=== PATIENT | female | born 1990 | race Caucasian/White ===

== ENCOUNTER 2023-10-07 09:28 | Outpatient (CLI) | payer OTHER, SELFPAY ==
--- NOTE | ~2023-10-07 | MMUS_ITS ---
EXAMINATION: MM diagnostic kaylynn BI w carito, US breast BI complete HISTORY: Patient feels a lump in left breast at 8:00. Referring physician reportedly feels a lump in the right breast in the upper outer quadrant. TECHNIQUE: Bilateral full field MLO, MLO and CC spot left MLO, MLO and CC 3-D tomosynthesis images we re performed and synthetic 2-D images were generated. CAD analysis was submitted and interpreted. Hig h resolution complete bilateral breast ultrasound examination including all 4 quadrants and subareola r area in each breast was performed. COMPARISON: None BREAST PARENCHYMAL COMPOSITION: The breasts are extremely dense, which lowers the sensitivity of mamm ography. FINDINGS: MAMMOGRAPHIC FINDINGS: An approximately 8 x 11 mm circumscribed benign-appearing lesion with several benign-appearing calcif ications is noted anteriorly in the upper inner quadrant of the left breast. The extremely dense fibroglandular stroma vascular masses in either breast. No malignant calcification, skin thickening or retraction is noted. ULTRASOUND: Right breast: 10:00 8 cm from nipple: Oval circumscribed 4 x 5.9 mm mass without internal vascularity or posterior shadowing, probably benign. Six-month targeted right breast ultrasound follow-up is recommended. Left breast: 3:00 4.5 cm from nipple: Well-circumscribed hypoechoic solid lesion measuring 6 x 5 x 7 mm, without internal vascularity or posterior shadowing, likely a small benign lesion, probably fibroadenoma. Six -month targeted ultrasound follow-up is recommended. 8:00 5 cm from nipple: 1.2 x 1.5 x 1.6 cm oval fairly well-circumscribed hypoechoic lesion with minim al internal vascularity on color flow imaging, through transmission posterior enhancement. This is li wendy a benign fibroadenoma. Six-month targeted ultrasound follow-up is recommended. 10:00 3.5 cm from nipple: 1.2 x 0.75 cm circumscribed, oval hypoechoic mass This corresponds to the mammographic finding and is likely a benign fibroadenoma. Six-month targeted ultrasound follow-up is recommended. IMPRESSION: 1. Bilateral probable benign breast masses 2. Bilateral targeted six-month ultrasound follow-up is recommended BI-RADS category 3, probably benign findings. Reviewed, dictated and finalized at location B. IMPRESSION: 1. Bilateral probable benign breast masses 2. Bilateral targeted six-month ultrasound follow-up is recommended BI-RADS category 3, probably benign findings.
== END 2023-10-07 09:29 ==
LOC: MICIMG 09:29
PROVIDERS: PCP Nurse Practitioner Family; Visit Provider Nurse Practitioner Obstetrics & Gynecology
DX: N63.0 Unspecified lump in unspecified breast (principal); R92.8 Other abnormal and inconclusive findings on diagnostic imaging of breast
CPT/HCPCS: 76641; 77062; 77066; G0279

== ENCOUNTER → 2024-01-17 12:14 | Outpatient (CLI) | payer OTHER, SELFPAY ==
--- NOTE | ~2024-01-17 | XR_ITS ---
EXAMINATION: XR chest 2V 01/17/2024 12:32 INDICATION: Cough PROCEDURE: 2 view chest COMPARISON: No prior studies for comparison. FINDINGS: The lungs are clear. The cardiomediastinal silhouette is within normal limits. There are no pleural effusions. There is no pneumothorax suspected. IMPRESSION: 1: NO ACUTE CARDIOPULMONARY DISEASE. Reviewed, dictated and finalized at location B.
== END ==
PROVIDERS: PCP Family Medicine; Visit Provider Nurse Practitioner Family
DX: R05.9 Cough, unspecified (principal)
CPT/HCPCS: 71046